=== PATIENT | female | born 1975 | race Caucasian/White ===

== ENCOUNTER 2018-03-18 11:06 | Emergency (ER) | payer BC ==
[~2018-03-18] VITALS: Ht 177.8 cm; Wt 72.6 kg
[2018-03-18] MEDS ORDERED: IBUPROFEN800 MG PO (11:17)
[2018-03-18] MEDS ORDERED: DICLOFENAC SODI75 MG PO (11:17)
[2018-03-18] MEDS ORDERED: AUGMENTIN 875-1 EACH PO (11:28)
== END 2018-03-18 11:34 | disposition home or self-care (01) ==
LOC: ED 11:06
DX: L03.031 Cellulitis of right toe (principal); Z88.2 Allergy status to sulfonamides; Z88.1 Allergy status to other antibiotic agents; Z88.8 Allergy status to other drugs, medicaments and biological substances; Z79.899 Other long term (current) drug therapy
CPT/HCPCS: 99283